=== PATIENT | female | born 1970 | race Hispanic/Latino ===

== ENCOUNTER 2017-12-03 11:12 | Emergency (ER) | payer SELFPAY ==
[2017-12-03] MEDS ORDERED: MECLIZINE HCL 25 MG TABLET ONE (11:32)
[2017-12-03 12:06] LABS: APPEARANCE,URINE CLEAR (CLEAR); BILIRUBIN,URINE NEGATIVE (NEGATIVE); COLOR,URINE YELLOW (YELLOW); GLUCOSE, URINE (UA) NEGATIVE (NEGATIVE); KETONES,URINE NEGATIVE (NEGATIVE); LEUKOCYTE ESTERASE ,URINE NEGATIVE (NEGATIVE); NITRATE,URINE NEGATIVE (NEGATIVE); OCCULT BLOOD,URINE NEGATIVE (NEGATIVE); PROTEIN,URINE NEGATIVE (NEGATIVE); UROBILINOGEN,URINE 0.2 mg/dL (0.2-1.0)
[2017-12-03 12:06] LABS: BASOPHILS % (AUTO) 0.6 % (0.0-5.0); HEMATOCRIT 36.5 % (36-48); LYMPHOCYTES % (AUTO) 31.2 % (21.0-51.0); MEAN CORPUSCULAR HGB CONC 33.6 g/dL (32.0-36.0); MEAN CORPUSCULAR VOLUME 83.1 fL (79-99); MONOCYTES % (AUTO) 7.1 % (3.0-13.0); NEUTROPHILS % (AUTO) 60.1 % (40.0-77.0); PLATELET COUNT (AUTO) 312 K/uL (130-400); RED BLOOD CELL COUNT(AUTO) 4.39 MIL/uL (4.00-5.50); RED CELL DISTRIBUTION WIDTH 15.8 % (11.0-15.5); WHITE BLOOD COUNT (AUTO) 6.8 K/uL (4.8-10.8)
[2017-12-03 12:12] LABS: CREATININE 0.6 mg/dL (0.5-1.5); POTASSIUM 3.4 mmol/L (3.5-5.1)
[2017-12-03 12:17] LABS: ALBUMIN 3.3 g/dL (3.5-5.0); BILIRUBIN,TOTAL 0.3 mg/dL (0.2-1.0); TOTAL PROTEIN, SERUM 7.3 g/dL (6.0-8.3)
[2017-12-03] MEDS ORDERED: METOCLOPRAMIDE 10 MG TABLET ONE (13:12)
[2017-12-03] MEDS ORDERED: KETOROLAC TROMETHAMINE 30MG/ML ONE (13:13)
== END 2017-12-03 14:05 | disposition home or self-care (01) ==
LOC: EDH 11:12
DX: G44.209 Tension-type headache, unspecified, not intractable (principal); H81.10 Benign paroxysmal vertigo, unspecified ear; Z90.710 Acquired absence of both cervix and uterus
CPT/HCPCS: 36415; 80053; 81003; 85025; 93005; 96372; 99285; J1885

== ENCOUNTER 2018-06-01 14:14 | Emergency (ER) | payer SELFPAY ==
[2018-06-01] MEDS ORDERED: KETOROLAC TROMETHAMINE 30MG/ML ONE (14:33)
[2018-06-01] MEDS ORDERED: DEXAMETHASONE SOD PHOSPHATE 10MG/ML 1ML VIAL ONE (14:33)
[2018-06-01 14:44] LABS: RAPID GROUP A STREP NEGATIVE (NEGATIVE)
== END 2018-06-01 15:39 | disposition home or self-care (01) ==
LOC: EDH 14:14
DX: J02.9 Acute pharyngitis, unspecified (principal); R50.9 Fever, unspecified
CPT/HCPCS: 87804 ×2; 87880; 96372 ×2; 99284; J1100; J1885

== ENCOUNTER 2021-03-19 14:35 | Emergency (ER) | payer BC ==
[~2021-03-19] VITALS: Ht 160 cm; Wt 86.2 kg
[2021-03-19 14:37] VITALS: BP 141/89
[2021-03-19] MEDS ORDERED: BUPIVACAINE/PF 0.5% 10ML VIAL IJ SCH (17:30)
[2021-03-19] MEDS ORDERED: TRIAMCINOLONE ACETONIDE 40 MG/ML 1ML VIAL SQ SCH (17:30)
[2021-03-19 18:05] VITALS: BP 136/78
[2021-03-19] MEDS ORDERED: NAPR-1180 PO (18:12)
[2021-03-19] MEDS ORDERED: TRAM1TAB PO (18:12)
== END 2021-03-19 18:52 | disposition home or self-care (01) ==
LOC: EDH 14:35
DX: M70.62 Trochanteric bursitis, left hip (principal); Z79.1 Long term (current) use of non-steroidal anti-inflammatories (NSAID)
CPT/HCPCS: 20610; 99283; J3301; J3490